=== PATIENT | female | born 1950 | race Caucasian/White ===

== ENCOUNTER → 2024-06-03 09:37 | Outpatient (CLI) | payer MEDICARE, BC, SELFPAY ==
--- NOTE | 2024-06-03 09:41 | DI.CT.S_ITS ---
PROCEDURE: CT SOFT TISSUE NECK WO/W CON INDICATIONS: Hyperparathyroidism TECHNIQUE: Before and after the administration of intravenous contrast, 2.0 mm axial sections acquired through the neck and down to the josefa. Additional 2.0 mm coronal and sagittal reformats were generated of the contrast enhanced images. For radiation dose reduction, the following was used: automated exposure control. COMPARISON: None. FINDINGS: Image quality: Excellent. Parathyroid: No convincing evidence of hyperattenuating hyperenhancing parathyroid adenoma Thyroid: Unremarkable Lymph nodes: No enlarged lymph nodes seen throughout the neck. Vessels: Visualized vasculature appears patent. Neck spaces: The oropharynx, nasopharynx, and pharynx demonstrate no mucosal lesions. The vocal cords, false vocal cords, pyriform sinuses, epiglottis, vallecula, and tongue base all appear normal. Extramucosal spaces appear unremarkable. Glands: The parotid and submandibular glands appear normal. Miscellaneous: Visualized lungs appear clear. Superficial soft tissues appear normal. Bones: No suspicious bony lesions. Visualized sinuses and mastoids appear unremarkable. 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 No evidence of parathyroid adenoma. Consider follow-up nuclear medicine scan clinical concern persists. Approved by: Ricardo Lomax M.D. on 06/03/2024 at 17:17
[2024-06-03 10:33] LABS: Estimated Glomerular Filt Rate > 60 mL/min (>60)
== END ==
PROVIDERS: Radiology Diagnostic Radiology; PCP Nurse Practitioner; Referring Provider Surgery; Visit Provider Surgery
DX: E05.80 Other thyrotoxicosis without thyrotoxic crisis or storm (principal); R94.4 Abnormal results of kidney function studies; E21.3 Hyperparathyroidism, unspecified
CPT/HCPCS: 36415; 70492; 82565; Q9967

== ENCOUNTER → 2024-06-17 12:06 | Outpatient (CLI) | payer MEDICARE, BC, SELFPAY ==
--- NOTE | 2024-06-17 12:07 | DI.NM.S_ITS ---
PROCEDURE: NM PARATHYROID RADIOPHARMACEUTICAL: 26.3 mCi Tc-99m sestamibi IV. INDICATIONS: HYPERPARATHYROIDISM TECHNIQUE: After intravenous administration of Tc-99m sestamibi, anterior planar images of the neck and mediastinum were obtained at approximately 10 minutes and 2-3 hours. SPECT images were acquired after the 10 minute planar images. COMPARISON: [facility], CT, CT SOFT TISSUE NECK WO/W CON, 06/03/2024, 11:11. Findings and impression On early images, bilobed thyroid is seen. There is asymmetric persistent slight radiotracer retention projecting over the left thyroid bed on delayed images. This may represent a small adenoma on the left. Left greater than right hypertrophy also possible. Dictated by: Jon Chavez M.D. on 06/17/2024 at 16:39 Approved by: Jon Chavez M.D. on 06/17/2024 at 16:42
== END ==
PROVIDERS: PCP Nurse Practitioner; Referring Provider Surgery; Visit Provider Surgery
DX: E21.3 Hyperparathyroidism, unspecified (principal)
CPT/HCPCS: 78070; A9500